=== PATIENT | female | born 1965 | race Caucasian/White ===

== ENCOUNTER 2017-12-20 22:26 | Inpatient (IN) | payer OTHER ==
[~2017-12-20] VITALS: Ht 167.6 cm; Wt 63.6 kg
[2017-12-20] MEDS ORDERED: CEFTRIAXONE 1 G PREMIX 50 ML IV ONE (22:45)
[2017-12-20] MEDS ORDERED: SODIUM CHLORIDE 0.9% 1000ML BAG (SEPSIS BOLUS) IV ONE (22:45)
[2017-12-20] MEDS ORDERED: ONDANSETRON HCL 4MG/2ML INJ IV STA (22:45)
[2017-12-20] MEDS ORDERED: SODIUM CHLORIDE 0.9% 1,000 ML IV ONE (22:45)
[2017-12-21] VITALS (48 sets, daily range): BP systolic 87–137; BP diastolic 50–92
[2017-12-21 00:46] LABS: INR 1.4
[2017-12-21 01:19] LABS: HEMATOCRIT. 36.8 % (36.0-48.0); HEMOGLOBIN. 11.6 g/dL (12.0-16.0); MEAN CORPUSCULAR HEMOGLOBIN 25.9 pg (28.0-32.0); MEAN CORPUSCULAR VOLUME 82.1 fL (81.0-99.0); MEAN PLATELET VOLUME 12.1 fl (7.4-10.4); RED BLOOD CELL COUNT 4.48 mill/uL (4.2-5.4); RED CELL DISTRIBUTION WIDTH 20.9 % (11.6-14.6)
[2017-12-21 01:28] LABS: PLATELET 7 x1000/uL (130-400)
[2017-12-21 02:11] LABS: CHLORIDE 98 mEq/L (98-107)
[2017-12-21 02:17] LABS: BETA HYDROXYBUTYRATE 6.8 mMol/L (0.0-0.3)
[2017-12-21 02:32] LABS: PLATELET ESTIMATE DECREASED
[2017-12-21] MEDS ORDERED: SODIUM CHLORIDE 0.9% 1,000 ML IV ONE (02:44)
[2017-12-21] MEDS ORDERED: INSULIN REGULAR (DRIP) 100 UNITS in SODIUM CHLORIDE 0.9% 99 ML IV SCH (02:45)
[2017-12-21] MEDS ORDERED: SODIUM CHLORIDE 0.9% IV NR (03:00)
[2017-12-21] MEDS ORDERED: INSULIN REGULAR IV NR (03:00)
[2017-12-21] MEDS ORDERED: IOHEXOL-300 100 ML BOTTLE ONE (03:47)
[2017-12-21] MEDS ORDERED: SODIUM CHLORIDE 0.9% 1,000 ML IV SCH (05:45)
[2017-12-21] MEDS ORDERED: INSULIN REGULAR (DRIP) 100 UNITS in SODIUM CHLORIDE 0.9% 99 ML IV PRN ×2 (05:45→06:00)
[2017-12-21] MEDS ORDERED: MORPHINE SULFATE 4 MG/ML CPJ (NOT FOR IM USE) IV PRN (05:45)
[2017-12-21] MEDS ORDERED: DEXTROSE 50% WATER 50ML SYRINGE IV PRN ×3 (05:45→06:00)
[2017-12-21] MEDS: BLOOD SUGAR DIAGNOSTIC STRIP TEST SCH ×12 (06:08→23:34)
[2017-12-21 06:30] LABS: HEMATOCRIT 37.3 % (36.0-48.0); HEMOGLOBIN 11.8 g/dL (12.0-16.0); MEAN CORPUSCULAR HEMOGLOBIN 25.8 pg (28.0-32.0); MEAN CORPUSCULAR VOLUME 81.3 fL (81.0-99.0); RED BLOOD CELL COUNT 4.59 mill/uL (4.2-5.4); RED CELL DISTRIBUTION WIDTH 20.7 % (11.6-14.6)
[2017-12-21] MEDS ORDERED: BLOOD SUGAR DIAGNOSTIC STRIP TEST SCH (06:30)
[2017-12-21] MEDS ORDERED: ONDANSETRON HCL 4MG TABLET PO PRN (07:00)
[2017-12-21 07:13] LABS: CHLORIDE 106 mEq/L (98-107)
[2017-12-21 07:44] LABS: BG BASE EXCESS -6.4 mmol/L (-2.0-2.0); BG DEOXYHEMOGLOBIN 4.3 % (0.0-5.0); BG FRACTION INSPIRED OXYGEN 21; BG HCO3 ACT 16.3 mmol/L (22.0-26.0); BG METHEMOGLOBIN 0.2 % (0.0-1.5); BG OXYGEN SATURATION 95.7 % (92.0-98.5); BG OXYHEMOGLOBIN 95.5 % (94.0-97.0); BG PCO2 25.1 mmHg (35.0-45.0); BG PH 7.431 (7.350-7.450); BG PO2 82.5 mmHg (75.0-100.0); BG SAMPLE SITE RIGHT BRACHIAL; BG TOTAL HEMOGLOBIN 12.1 g/dL (12.0-18.0); BG VENT MODE ROOM AIR
[2017-12-21] MEDS ORDERED: POTASSIUM CHLORIDE 20MEQ TABLET SR PO PRN (08:30)
[2017-12-21] MEDS ORDERED: MAGNESIUM/ALUMINUM HYDROXIDE/SIMETHICONE 30ML UDC PO PRN (08:30)
[2017-12-21] MEDS ORDERED: ACETAMINOPHEN 325MG TABLET PO PRN (08:30)
[2017-12-21] MEDS ORDERED: NA PHOS,M-B/NA PHOS,DI-BA ENEMA 118ML PR PRN (08:30)
[2017-12-21] MEDS ORDERED: ACETAMINOPHEN 650MG SUPP PR PRN (08:30)
[2017-12-21] MEDS ORDERED: IPRATROPIUM/ALBUTEROL 0.5-3(2.5)MG/3ML NEB INH PRN (08:30)
[2017-12-21] MEDS ORDERED: CLONIDINE 0.1MG TABLET PO PRN (08:30)
[2017-12-21] MEDS ORDERED: ONDANSETRON HCL 4MG/2ML INJ IV PRN (08:30)
[2017-12-21 08:56] LABS: PLATELET 9 x1000/uL (130-400)
[2017-12-21] MEDS ORDERED: DEXT 5%/0.45% NACL KCL 30MEQ/L 1,000 ML IV SCH (10:00)
[2017-12-21] MEDS ORDERED: SODIUM BICARBONATE 150 MEQ in SODIUM CHLORIDE 0.45% 1,000 ML IV SCH (10:00)
[2017-12-21] MEDS ORDERED: LIDOCAINE HCL 1% 20ML VIAL (Pyxis) INJ ONE (10:50)
[2017-12-21] MEDS ORDERED: SODIUM BICARBONATE 4% (2.4MEQ) 5ML VIAL IV ONE (10:50)
[2017-12-21] MEDS: PANTOPRAZOLE SODIUM 40 MG/VIAL IV SCH (11:00)
[2017-12-21 13:52] LABS: CHLORIDE 108 mEq/L (98-107)
[2017-12-21] MEDS: SODIUM CHLORIDE 0.9% INJ 3ML FLUSH IVF SCH ×2 (14:00→21:10)
[2017-12-21 14:01] LABS: BETA HYDROXYBUTYRATE 1.5 mMol/L (0.0-0.3)
[2017-12-21 14:29] LABS: PHOSPHORUS 0.5 mg/dL (2.5-4.9)
[2017-12-21] MEDS ORDERED: [UNRECOGNIZED DRUG - OTHER] PO PRN (15:00)
[2017-12-21] MEDS ORDERED: INSULIN GLARGINE UD 100 UNITS/ML SYR SUBCUT SCH (16:00)
[2017-12-21] MEDS ORDERED: POTASSIUM PHOS,M-BASIC-D-BASIC 30 MMOL in DEXT 5% WATER 500 ML IV NR (16:00)
[2017-12-21] MEDS ORDERED: MAGNESIUM 4 G PREMIX 100 ML IV NR (16:30)
[2017-12-21] MEDS ORDERED: HYDROMORPHONE HCL/PF 2MG/ML CPJ IV PRN (17:45)
[2017-12-21] MEDS ORDERED: INSULIN LISPRO 100 UNITS/ML SUBCUT SCH (21:00)
[2017-12-21 21:14] LABS: CHLORIDE 108 mEq/L (98-107)
[2017-12-21 21:33] LABS: CREATINE KINASE 1121 IU/L (26-192); CREATINE KINASE MB FRACTION 25.9 ng/mL (0.5-3.6)
[2017-12-21 22:37] LABS: CLARITY URINE CLEAR (CLEAR); COLOR URINE YELLOW (YELLOW); KETONES URINE NEGATIVE (NEGATIVE); LEUKOCYTE ESTERASE URINE TRACE (NEGATIVE); NITRITE URINE NEGATIVE (NEGATIVE); OCCULT BLOOD URINE 2+ (NEGATIVE); PROTEIN URINE NEGATIVE (NEGATIVE); SPECIFIC GRAVITY URINE 1.012 (1.005-1.030); UROBILINOGEN URINE 0.2 E.U./dL (0.2-1.0)
[2017-12-21] MEDS: INSULIN LISPRO 100 UNITS/ML SUBCUT SCH (23:34)
[2017-12-22] VITALS (45 sets, daily range): BP systolic 101–131; BP diastolic 53–87
[2017-12-22 01:10] LABS: HEMATOCRIT. 29.9 % (36.0-48.0); HEMOGLOBIN. 9.4 g/dL (12.0-16.0); MEAN CORPUSCULAR VOLUME 82.4 fL (81.0-99.0); PLATELET 85 x1000/uL (130-400); RED BLOOD CELL COUNT 3.63 mill/uL (4.2-5.4); RED CELL DISTRIBUTION WIDTH 21.1 % (11.6-14.6)
[2017-12-22 01:18] LABS: CHLORIDE 105 mEq/L (98-107)
[2017-12-22 01:26] LABS: BETA HYDROXYBUTYRATE 0.5 mMol/L (0.0-0.3); CREATINE KINASE 834 IU/L (26-192); CREATINE KINASE MB FRACTION 21.5 ng/mL (0.5-3.6); PHOSPHORUS 2.9 mg/dL (2.5-4.9)
[2017-12-22] MEDS: INSULIN LISPRO 100 UNITS/ML SUBCUT SCH ×5 (04:07→21:58)
[2017-12-22] MEDS: BLOOD SUGAR DIAGNOSTIC STRIP TEST SCH ×5 (04:07→20:00)
[2017-12-22] MEDS: SODIUM CHLORIDE 0.9% INJ 3ML FLUSH IVF SCH ×3 (05:48→21:59)
[2017-12-22] MEDS: DEXT 5%/0.45% NACL 1000ML 1,000 ML IV SCH ×2 (06:29→16:51)
[2017-12-22] MEDS ORDERED: LETR2.5T6 PO (07:08)
[2017-12-22 07:16] LABS: NUCLEATED RED BLOOD CELLS 1 /100 WBC
[2017-12-22 07:17] LABS: PLATELET ESTIMATE DECREASED
[2017-12-22] MEDS ORDERED: CEFTRIAXONE 1 G PREMIX 50 ML IV SCH (09:00)
[2017-12-22] MEDS: PANTOPRAZOLE SODIUM 40 MG/VIAL IV SCH (09:26)
[2017-12-22] MEDS ORDERED: VANCOMYCIN 1250MG in DEXTROSE 5% WATER 250ML IV NR (09:30)
[2017-12-22] MEDS: INSULIN GLARGINE UD 100 UNITS/ML SYR SUBCUT SCH ×2 (10:20→21:58)
[2017-12-22 10:33] LABS: CHLORIDE 107 mEq/L (98-107)
[2017-12-22 10:47] LABS: HDL CHOLESTEROL 16 mg/dL (40-59); LDL CHOLESTEROL 73 mg/dL (5-100); T4 FREE 0.55 ng/dL (0.76-1.46)
[2017-12-22 10:49] LABS: BG BASE EXCESS 1.2 mmol/L (-2.0-2.0); BG CARBOXYHEMOGLOBIN 0.3 % (0.5-1.5); BG DEOXYHEMOGLOBIN 3.3 % (0.0-5.0); BG FRACTION INSPIRED OXYGEN 28; BG HCO3 ACT 24.2 mmol/L (22.0-26.0); BG METHEMOGLOBIN 0.3 % (0.0-1.5); BG OXYGEN SATURATION 96.7 % (92.0-98.5); BG OXYHEMOGLOBIN 96.1 % (94.0-97.0); BG PCO2 32.9 mmHg (35.0-45.0); BG PH 7.485 (7.350-7.450); BG PO2 87.3 mmHg (75.0-100.0); BG SAMPLE SITE RIGHT RADIAL; BG TOTAL HEMOGLOBIN 10.8 g/dL (12.0-18.0); BG VENT MODE NASAL CANNULA
[2017-12-22 11:11] LABS: AMMONIA 42 uMol/L (<32)
[2017-12-22 11:13] LABS: D-DIMER 2.35 mg/L FEU (<0.50); INR 1.4; PROTHROMBIN TIME 14.1 sec (9.1-11.1)
[2017-12-22 12:35] LABS: HEPATITIS B SURFACE ANTIGEN NEGATIVE
[2017-12-22 13:01] LABS: HEPATITIS B CORE AB IGM NEGATIVE
[2017-12-22 13:02] LABS: HEPATITIS A AB IGM NEGATIVE (NEGATIVE)
[2017-12-22] MEDS: VANCOMYCIN 750 MG PREMIX 150 ML IV SCH (20:05)
[2017-12-22 20:51] LABS: CREATINE KINASE MB FRACTION 16.1 ng/mL (0.5-3.6)
[2017-12-22] MEDS ORDERED: VANCOMYCIN 1 G PREMIX 200 ML IV SCH (21:30)
[2017-12-23] VITALS (29 sets, daily range): BP systolic 85–135; BP diastolic 59–87
[2017-12-23] MEDS: METRONIDAZOLE 500 MG PREMIX 100 ML IV SCH ×3 (00:03→17:54)
[2017-12-23] MEDS: CEFEPIME 2,000 MG in DEXT 5% WATER 100 ML IV SCH ×3 (00:03→23:53)
[2017-12-23] MEDS: BLOOD SUGAR DIAGNOSTIC STRIP TEST SCH ×6 (00:04→20:00)
[2017-12-23] MEDS: INSULIN LISPRO 100 UNITS/ML SUBCUT SCH ×6 (00:33→20:00)
[2017-12-23] MEDS: VANCOMYCIN 750 MG PREMIX 150 ML IV SCH ×3 (01:45→22:28)
[2017-12-23] MEDS: DEXT 5%/0.45% NACL 1000ML 1,000 ML IV SCH ×2 (01:45→13:04)
[2017-12-23] MEDS: SODIUM CHLORIDE 0.9% INJ 3ML FLUSH IVF SCH ×3 (05:28→21:48)
[2017-12-23 05:51] LABS: HEMATOCRIT. 34.4 % (36.0-48.0); HEMOGLOBIN. 10.9 g/dL (12.0-16.0); MEAN CORPUSCULAR HEMOGLOBIN 25.9 pg (28.0-32.0); MEAN CORPUSCULAR VOLUME 81.9 fL (81.0-99.0); MEAN PLATELET VOLUME 8.6 fl (7.4-10.4); RED CELL DISTRIBUTION WIDTH 21.3 % (11.6-14.6)
[2017-12-23 06:01] LABS: CHLORIDE 105 mEq/L (98-107)
[2017-12-23 06:14] LABS: PLATELET 42 x1000/uL (130-400)
[2017-12-23 06:16] LABS: CREATINE KINASE 751 IU/L (26-192); CREATINE KINASE MB FRACTION 15.3 ng/mL (0.5-3.6)
[2017-12-23 06:17] LABS: PHOSPHORUS 0.5 mg/dL (2.5-4.9)
[2017-12-23 07:24] LABS: NUCLEATED RED BLOOD CELLS 2 /100 WBC; PLATELET ESTIMATE MARKEDLY DECREASED
[2017-12-23] MEDS ORDERED: POTASSIUM PHOS,M-BASIC-D-BASIC 40 MMOL in DEXT 5% WATER 500 ML IV NR (08:00)
[2017-12-23] MEDS: PANTOPRAZOLE SODIUM 40 MG/VIAL IV SCH (08:34)
[2017-12-23] MEDS: INSULIN GLARGINE UD 100 UNITS/ML SYR SUBCUT SCH ×2 (10:04→21:47)
[2017-12-23] MEDS ORDERED: SODIUM PHOS,M-BASIC-D-BASIC 30 MM in DEXT 5% WATER 500 ML IV SCH (14:00)
[2017-12-23 14:41] LABS: CHLORIDE 103 mEq/L (98-107)
[2017-12-23 14:46] LABS: PHOSPHORUS 3.3 mg/dL (2.5-4.9)
[2017-12-23] MEDS ORDERED: KCL 20MEQ/100ML PREMIX 100 ML IV NR (16:00)
[2017-12-23] MEDS ORDERED: DIGOXIN 500MCG/2ML AMP IV NR (20:00)
[2017-12-23] MEDS ORDERED: SODIUM CHLORIDE 0.9% 1,000 ML IV NR (20:00)
[2017-12-24] VITALS (10 sets, daily range): BP systolic 94–129; BP diastolic 47–75
[2017-12-24] MEDS: METRONIDAZOLE 500 MG PREMIX 100 ML IV SCH ×2 (00:42→08:32)
[2017-12-24] MEDS: DEXT 5%/0.45% NACL 1000ML 1,000 ML IV SCH ×2 (00:46→08:32)
[2017-12-24] MEDS: BLOOD SUGAR DIAGNOSTIC STRIP TEST SCH ×4 (04:00→11:51)
[2017-12-24] MEDS: INSULIN LISPRO 100 UNITS/ML SUBCUT SCH ×4 (04:00→11:51)
[2017-12-24] MEDS: SODIUM CHLORIDE 0.9% INJ 3ML FLUSH IVF SCH ×2 (06:37→14:32)
[2017-12-24] MEDS: DEXTROSE 50% WATER 50ML SYRINGE IV PRN ×2 (06:42→11:58)
[2017-12-24 07:55] LABS: HEMOGLOBIN. 11.1 g/dL (12.0-16.0); MEAN CORPUSCULAR HEMOGLOBIN 25.7 pg (28.0-32.0); MEAN CORPUSCULAR VOLUME 80.9 fL (81.0-99.0); MEAN PLATELET VOLUME 10.2 fl (7.4-10.4); RED BLOOD CELL COUNT 4.33 mill/uL (4.2-5.4); RED CELL DISTRIBUTION WIDTH 21.1 % (11.6-14.6)
[2017-12-24 08:08] LABS: PLATELET 18 x1000/uL (130-400)
[2017-12-24 08:18] LABS: CHLORIDE 104 mEq/L (98-107)
[2017-12-24 08:25] LABS: PHOSPHORUS 1.5 mg/dL (2.5-4.9)
[2017-12-24] MEDS: PANTOPRAZOLE SODIUM 40 MG/VIAL IV SCH (08:32)
[2017-12-24] MEDS: VANCOMYCIN 750 MG PREMIX 150 ML IV SCH (08:32)
[2017-12-24] MEDS: INSULIN GLARGINE UD 100 UNITS/ML SYR SUBCUT SCH (10:00)
[2017-12-24] MEDS ORDERED: POTASSIUM CHLORIDE INJ 40 MEQ in DEXT 5% WATER 500 ML IV SCH (10:00)
[2017-12-24 10:27] LABS: PLATELET ESTIMATE MARKEDLY DECREASED
[2017-12-24] MEDS: CEFEPIME 2,000 MG in DEXT 5% WATER 100 ML IV SCH (12:00)
[2017-12-24] MEDS ORDERED: POTASSIUM PHOS,M-BASIC-D-BASIC 20 MMOL in DEXTROSE 5% WATER 250 ML IV NR (14:00)
== END 2017-12-24 15:10 | disposition short-term general hospital (02) | DRG 871 ==
LOC: ER 22:26 → EDBEDREQ 12-21 02:49 → EDBEDREQSVC 12-21 02:49 → EDBEDREQDT 12-21 02:49 → EDBEDREQTM 12-21 02:49 → ENRESERV 12-21 03:14 → MICUNO 12-21 04:35 → 6EST 12-24 03:30
PROVIDERS: ADMIT Family Medicine; ATTEND Family Medicine
PROC: 05HY33Z Insertion of Infusion Device into Upper Vein, Percutaneous Approach (ICD-10-PCS; principal; 2017-12-21)
PROC: B54MZZZ Ultrasonography of Right Upper Extremity Veins (ICD-10-PCS; 2017-12-21)
PROC: 30233R1 Transfusion of Nonautologous Platelets into Peripheral Vein, Percutaneous Approach (ICD-10-PCS; 2017-12-22)
DX: A41.9 Sepsis, unspecified organism (principal); E10.10 Type 1 diabetes mellitus with ketoacidosis without coma; E43 Unspecified severe protein-calorie malnutrition; J96.00 Acute respiratory failure, unspecified whether with hypoxia or hypercapnia; C16.9 Malignant neoplasm of stomach, unspecified; C78.7 Secondary malignant neoplasm of liver and intrahepatic bile duct; D61.9 Aplastic anemia, unspecified; D68.9 Coagulation defect, unspecified; G93.40 Encephalopathy, unspecified; J98.11 Atelectasis; N17.9 Acute kidney failure, unspecified; N39.0 Urinary tract infection, site not specified; R18.8 Other ascites; D69.6 Thrombocytopenia, unspecified; C50.919 Malignant neoplasm of unspecified site of unspecified female breast; C55 Malignant neoplasm of uterus, part unspecified; D63.0 Anemia in neoplastic disease; E83.39 Other disorders of phosphorus metabolism; E86.0 Dehydration; E87.5 Hyperkalemia; E87.6 Hypokalemia; F41.9 Anxiety disorder, unspecified; M54.9 Dorsalgia, unspecified; Z66 Do not resuscitate; Z79.4 Long term (current) use of insulin; Z85.028 Personal history of other malignant neoplasm of stomach; Z85.42 Personal history of malignant neoplasm of other parts of uterus
CPT/HCPCS: 36415; 36569; 36600; 51702; 71045; 74177; 76937; 78580; 80048; 80061; 80202; 82010; 82140; 82375; 82550; 82553; 82805; 82962; 83036; 83605; 83735; 83880; 84100; 84134; 84145; 84439; 84443; 84484; 85027; 85379; 86705; 86709; 86803; 86850; 86900; 86945; 87340; 93005; 93306; 93970; 96361; 96365; 96375; 99291; A6261; C1725; C9113; J0692; J0696; J1160; J1170; J1815; J2405; J3370; J3475; J3480; J3490; J7030; J7040; J7050; J7060; P9034; Q9967